=== PATIENT | male | born 1960 | race Caucasian/White ===

== ENCOUNTER 2018-12-11 21:33 | Emergency (ER) | payer MEDICAID ==
[2018-12-11] MEDS: HYDROCODONE/APAP (5/325) TAB PO (23:23)
[2018-12-11] MEDS: DIPHTH/TET/ACEL PERTUSS (ADULT) 0.5 ML VIAL IM* (23:24)
== END 2018-12-12 00:45 | disposition home or self-care (01) ==
LOC: FTE 12-12 00:45
DX: S61.431A Puncture wound without foreign body of right hand, initial encounter (principal); W45.0XXA Nail entering through skin, initial encounter; Y92.89 Other specified places as the place of occurrence of the external cause; Z23 Encounter for immunization
CPT/HCPCS: 73130; 73130-RT; 90471; 90715; 99283-25